=== PATIENT | male | born 1955 | race Caucasian/White ===

== ENCOUNTER 2017-11-20 08:17 | Emergency (ER) | payer OTHER ==
[~2017-11-20] VITALS: Ht 175.3 cm; Wt 90.7 kg
[2017-11-20] MEDS ORDERED: CIALIS5 M1 PO (09:06)
[2017-11-20] MEDS ORDERED: AMLODIPINE BESYL5 M1 PO (09:06)
[2017-11-20] MEDS ORDERED: TENORMIN100 M1 PO (09:06)
[2017-11-20] MEDS ORDERED: OMEGA-31000 M1 PO (09:07)
[2017-11-20] MEDS ORDERED: VITAMIN D35000 UNI1 PO (09:08)
--- NOTE | 2017-11-20 09:14 | CT SCAN REPORT ---
EXAMINATION: CT HEAD WITHOUT CONTRAST CLINICAL INFORMATION: Headache, dizziness and left arm numbness. COMPARISON: None TECHNIQUE: Contiguous axial imaging was performed from the skull base to vertex without intravenous administration of contrast. DLP: 624 mGy-cm FINDINGS: Brain parenchyma: The brain parenchyma has normal attenuation. Schilling-white matter differentiation is well preserved. No evidence of an acute major vascular territory infarction, hemorrhage, mass or midline shift. Cerebrospinal fluid spaces: No hydrocephalus or extra-axial fluid collections. Incidentally noted is a cavum septum pellucidum et vergae. Cerebellum and brainstem: Unremarkable. The 4th ventricle is midline in position. The cerebellopontine angles are normal. Calvarium and temporomandibular joints: Calvarium is intact. Mastoid air cells and middle ear cavities are well aerated. The TMJs are normal. Paranasal sinuses and orbits: The visualized paranasal sinuses are well aerated. The orbits and globes are unremarkable. Other: No acute findings in the visualized extracranial soft tissues. IMPRESSION: No acute intracranial pathology.
--- NOTE | 2017-11-20 09:19 | ED AMS/SEIZURE/WEAK/DIZZY ---
History of Present Illness General Chief Complaint: Upper Extremity Problem Stated Complaint: LEFT ARM NUMBNESS Source: patient, old records, EMS, friend Exam Limitations: no limitations Vital Signs & Intake/Output Vital Signs & Intake/Output Vital Signs Date Time Temp Pulse Resp B/P B/P Pulse O2 O2 Flow FiO2 Mean Ox Delivery Rate 11/20 1031 97.8 56 20 156/93 97 Room Air 11/20 0849 97.4 11/20 0834 98 Room Air Room Air 11/20 0822 97.4 62 18 152/98 98 Room Air Room Air Allergies Coded Allergies: Penicillins (Severe, ANAPHYLAXIS 11/20/17) Reconcile Medications Amlodipine Besylate 5 MG TABLET 1 TAB PO DAILY HEART (Reported) Atenolol (Tenormin) 100 MG TABLET 1 TAB PO DAILY HEART (Reported) Cholecalciferol (Vitamin D3) (Vitamin D3) 5,000 UNIT TABLET 1 TAB PO DAILY VITAMIN SUPPORT (Reported) Kinsman-3 Fatty Acids (Kinsman-3) 1,000 MG CAPSULE 1 CAP PO DAILY SUPPLEMENT ( Reported) Tadalafil (Cialis) 5 MG TABLET 1 TAB PO DAILY BPH (Reported) Triage Note: BIBA FROM WORK WITH C/O LEFT RASTAFARI HEADACHE, AND LEFT ARM TINGLING. PT ARRIVES TO ED ALERT, ORIENTED ABLE TO TRANSFER HIMSELF ONTO STRETCHER. DENIES LEFT HAND/ARM WEAKNESS. NO SLURRED SPEECH NOTED. Triage Nurses Notes Reviewed? yes Onset: Just prior to arrival Duration: minute(s):, constant, continues in ED Timing: recent history Injury Environment: work Severity: severe Modifying Factors: Improves With: rest. Worsens With: movement. HPI: Prior to admission patient felt dizzy lightheaded lost his balance with associated nausea and left arm numbness with left temporal headache radiating to the occiput. He denies fever chills nausea vomiting diarrhea abdominal pain chest pain shortness breath dysuria rash bleeding. Past History Travel History Traveled to [place] past 21 day No Medical History Any Pertinent Medical History? see below for history Neurological: NONE EENT: NONE Cardiovascular: hypertension Respiratory: NONE Gastrointestinal: NONE Hepatic: NONE Renal: NONE Musculoskeletal: NONE Psychiatric: NONE Endocrine: NONE Blood Disorders: NONE Cancer(s): NONE SKY CAP/Reproductive: NONE Surgical History Surgical History: non-contributory Psychosocial History What is your primary language Malay Tobacco Use: Quit >30 days ago ETOH Use: occasional use Illicit Drug Use: denies illicit drug use Family History Hx Contributory? No Review of Systems Review of Systems Constitutional: Reports: no symptoms. EENTM: Reports: no symptoms. Respiratory: Reports: no symptoms. Cardiovascular: Reports: no symptoms. GI: Reports: no symptoms. Genitourinary: Reports: no symptoms. Musculoskeletal: Reports: no symptoms. Skin: Reports: no symptoms. Neurological/Psychological: Reports: see HPI, headache. Hematologic/Endocrine: Reports: no symptoms. Immunologic/Allergic: Reports: no symptoms. All Other Systems: Reviewed and Negative Physical Exam Physical Exam General Appearance: well developed/nourished, alert, awake, anxious, mild distress Head: atraumatic, normal appearance Eyes: Bilateral: normal appearance, PERRL, EOMI, other (Nystagmus). Ears, Nose, Throat: normal pharynx, normal ENT inspection Neck: normal inspection, supple, full range of motion, no midline tenderness Respiratory: normal breath sounds, chest non-tender, no respiratory distress, quiet respiration, lungs clear Cardiovascular: regular rate/rhythm, normal peripheral pulses, norml femoral pulses equa Peripheral Pulses: 4+ carotid (R), 4+ carotid (L) Gastrointestinal: normal bowel sounds, soft, non-tender, no organomegaly Back: normal inspection, normal range of motion, no vertebral tenderness Extremities: normal range of motion, no ligament instability Neurologic/Psych: no motor/sensory deficits, awake, alert, oriented x 3, normal gait, normal mood/affect, 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 Skin: intact, normal color, warm/dry Lymphatic: no anterior cervical kimber Core Measures ACS in differential dx? No CVA/TIA Diagnosis No Sepsis Present: No Sepsis Focused Exam Completed? No Progress Differential Diagnosis: benign positional vertigo, CVA/stroke, dehydration, electrolyte imbalance, hypoxia, pneumonia Plan of Care: Orders Procedure Date/time Status TSH REFLEX 11/20 08 Complete TROPONIN LEVEL 11/20 08 Complete COMPREHENSIVE METABOLIC PANEL 11/20 08 Complete CBC WITHOUT DIFFERENTIAL 11/20 837 Complete EKG 11/20 08 Active Laboratory Tests 11/20/17 0905: Anion Gap 11, Estimated GFR > 60, BUN/Creatinine Ratio 16.3, Glucose 164 H, Calcium 8.7, Total Bilirubin 0.8, AST 27, ALT 34, Alkaline Phosphatase 48, Troponin I < 0.01, Total Protein 6.7, Albumin 4.0, Globulin 2.7, Albumin/ Globulin Ratio 1.5, TSH &T3 &Free T4 Intrp 2.270, CBC w Diff NO MAN DIFF REQ, RBC 5.35, MCV 89.3, MCH 30.4, MCHC 34.0, RDW 13.3, MPV 7.8, Gran % 69.8, Lymphocytes % 19.4 L, Monocytes % 8.3, Eosinophils % 1.7, Basophils % 0.8, Absolute Granulocytes 4.4, Absolute Lymphocytes 1.2, Absolute Monocytes 0.5, Absolute Eosinophils 0.1, Absolute Basophils 0 Diagnostic Imaging: Viewed by Me: CT Scan. Discussed w/RAD: CT Scan. Radiology Impression: No acute intracranial pathology. Initial ED EKG: normal axis, normal intervals, normal p-waves, normal QRS complex, normal sinus rhythm, nonspecific ST T wave chg Rhythm Strip: normal sinus rhythm Departure Departure Time of Disposition: 1046 Disposition: HOME OR SELF CARE Condition: Stable Clinical Impression Primary Impression: Vertigo Secondary Impressions: Headache Referrals: Carmine SWAN,Owen Santiago (PCP/Family) Departure Forms: Customer Survey General Discharge Information Prescriptions: Current Visit Scripts Scopolamine 1 PATCH TOP Q72 PRN dizziness #4 PATCH Meclizine HCl 1 TAB PO TIDPRN #30 TAB
[2017-11-20 09:22] LABS: ABSOLUTE BASOPHIL COUNT 0 /CUMM (0.0-0.2); ABSOLUTE EOSINOPHIL COUNT 0.1 /CUMM (0.0-0.7); ABSOLUTE GRANULOCYTE CT 4.4 /CUMM (1.4-6.5); ABSOLUTE LYMPH COUNT 1.2 /CUMM (1.2-3.4); ABSOLUTE MONOCYTE COUNT 0.5 /CUMM (0.10-0.60); BASOPHIL % 0.8 % (0.0-2.0); EOSINOPHIL % 1.7 % (0-5); GRANULOCYTE % 69.8 % (42.2-75.2); HEMATOCRIT 47.8 % (42-52); MEAN CORPUSCULAR HGB 30.4 PG (27.0-31.0); MEAN CORPUSCULAR VOLUME 89.3 FL (80.0-94.0); MEAN PLATELET VOLUME 7.8 FL (7.4-10.4); PLATELET COUNT 185 /CUMM (130-400); RBC DISTRIBUTION WIDTH 13.3 % (11.5-14.5); RED BLOOD CELL CT 5.35 /CUMM (4.70-6.10); WHITE BLOOD CELL COUNT 6.3 /CUMM (4.8-10.8)
[2017-11-20 10:31] VITALS: BP 156/93
[2017-11-20] MEDS ORDERED: MECLIZINE HCL25 MG PO (10:48)
[2017-11-20] MEDS ORDERED: SCOPOLAMINE1 EAC1 TOP (10:48)
== END 2017-11-20 11:54 ==
LOC: ERH 08:17
PROVIDERS: Emergency Medicine
DX: R42 Dizziness and giddiness (principal); R51 Headache
CPT/HCPCS: 93005; 93010; 96365; 96375; J0131; J1885